=== PATIENT | female | born 1970 | race American Indian/Alaskan Native ===

== ENCOUNTER 2016-11-09 11:01 | Inpatient (IN) | payer MEDICAID, OTHER ==
[2016-11-09 11:01] VITALS: BMI 32.6
[2016-11-09 11:53] LABS: BASO # 0.1 K/uL (0.0-0.2); BASO % 0.9 % (0.0-2.0); EOS # 0.2 K/uL (0.0-0.7); EOS % 2.6 % (0.0-4.0); HEMATOCRIT 40.5 % (34.0-47.0); LYMPH # 3.4 K/uL (1.0-4.3); LYMPH % 45.1 % (20.0-40.0); MEAN CELL VOLUME 88.7 fL (81.0-99.0); MEAN CORPUSCULAR HGB CONC 32.7 g/dL (33.0-37.0); MEAN PLATELET VOLUME 10.9 fL (7.2-11.7); MONO # 0.5 K/uL (0.0-0.8); NRBC % 0.1 % (0.0-2.0); RED CELL DISTRIBUTION WIDTH 14.2 % (11.5-14.5); WHITE BLOOD COUNT 7.6 K/uL (4.8-10.8)
[2016-11-09 11:57] LABS: CHLORIDE 102 mmol/L (98-107); POTASSIUM 3.7 mmol/L (3.6-5.2); SODIUM 141 mmol/L (132-148)
[2016-11-09 11:59] LABS: BILIRUBIN,TOTAL 0.4 mg/dL (0.2-1.3); CARBON DIOXIDE 26 mmol/L (22-30); GFR AFRICAN-AMERICAN > 60
[2016-11-09 12:00] LABS: ALB/GLOB RATIO 1.2 (1.0-2.1); ALCOHOL SERUM < 10 mg/dl (0-10); ALKALINE PHOSPHATASE 56 U/L (38-126); ALT/SGPT 18 U/L (9-52); AST/SGOT 19 U/L (14-36); BLOOD UREA NITROGEN 13 mg/dL (7-17); GLUCOSE,RANDOM 78 mg/dL (65-105)
[2016-11-09 12:00] LABS: RBC URINE 3 /hpf (0-3); URINE BACTERIA RARE (<OCC); URINE BILIRUBIN NEGATIVE (NEGATIVE); URINE BLOOD NEGATIVE (NEGATIVE); URINE COLOR Amber (YELLOW); URINE GLUCOSE (UA) NORMAL (Normal); URINE KETONE NEGATIVE (NEGATIVE); URINE LEUKOCYTE ESTERASE NEG Leu/uL (Negative); URINE PROTEIN 1+ mg/dL (NEGATIVE); WBC URINE 2 /hpf (0-5)
--- NOTE | 2016-11-09 12:37 | C.PDOC ---
History Of Present Illness 46-year-old female, presents to the emergency department by BLS requesting detox from Heroin. Patient admits to abusing Heroin for the past two years. Last use was this morning. Pt denies suicidal ideation or attempts, hx of depression. Denies head injury, LOC, syncope, neck pain, nausea/vomiting, chest pain, shortness of breath, palpitation, diaphoresis, abd. pain, back pain, UTI sx, or any other associated symptoms. No other complaints at this time. At present time, pt is AAO#3, appears comfortable, appropriate, not in any apparent distress. Time Seen by Provider: 11/09/16 11:20 Chief Complaint (Nursing): Substance Abuse History Per: Patient History/Exam Limitations: no limitations Onset/Duration Of Symptoms: Days Current Symptoms Are (Timing): Still Present Past Medical History Reviewed: Historical Data, Nursing Documentation, Vital Signs Vital Signs: Last Vital Signs Temp 97.8 F 11/09/16 11:30 Pulse 80 11/09/16 11:30 Resp 16 11/09/16 11:30 BP 151/87 H 11/09/16 11:30 Pulse Ox 98 11/09/16 12:51 - Medical History PMH: Asthma, Back Problems, Depression, Diverticulitis Denies: Diabetes, Hepatitis, HIV, HTN, Seizures, Sexually Transmitted Disease Family History: States: Unknown Family Hx - Social History Hx Tobacco Use: Yes Hx Alcohol Use: No Hx Substance Use: Yes (heroin and cocaine) - Immunization History Hx Tetanus Toxoid Vaccination: No Hx Influenza Vaccination: No Hx Pneumococcal Vaccination: No Review Of Systems Except As Marked, All Systems Reviewed And Found Negative. Constitutional: Negative for: Fever Cardiovascular: Negative for: Chest Pain Respiratory: Negative for: Shortness of Breath Gastrointestinal: Negative for: Vomiting Skin: Negative for: Rash Psych: Negative for: Suicidal ideation Physical Exam - Physical Exam Appears: Well, Non-toxic, No Acute Distress Skin: Warm, Dry, No Rash Head: Atraumatic, Normacephalic Eye(s): bilateral: Normal Inspection Ear(s): Bilateral: Normal Nose: Normal, No Discharge Oral Mucosa: Moist, No Drooling, No Trismus Tongue: Normal Appearing Lips: Normal Appearing Throat: Normal Neck: Normal, Normal ROM, Supple Cardiovascular: Rhythm Regular Respiratory: Normal Breath Sounds, No Accessory Muscle Use, No Stridor, No Wheezing Gastrointestinal/Abdominal: Normal Exam, Soft, No Tenderness, No Distention, No Guarding, No Rebound Back: Normal Inspection, No CVA Tenderness Extremity: Normal ROM, No Pedal Edema, No Deformity Neurological/Psych: Oriented x3, Normal Speech, Normal Motor, Normal Sensation, Normal Reflexes ED Course And Treatment - Laboratory Results Result Diagrams: 11/09/16 11:40 11/09/16 11:40 Lab Interpretation: Normal O2 Sat by Pulse Oximetry: 98 Pulse Ox Interpretation: Normal Progress Note: On re-eavluation at 11:40, pt is afebrile, hemodynamicaly stable. Non-toxic. AAO#3, not in any apparent distress. neurologicaly intact. Blood wrok review and appears normal. PATIENT IS MEDICALLY CLEARED FOR PES EVALUATION AND FURTHER TREATMENT,TRANSFER NEED. After PES evaluated pt case was discussed with [id number] and admission to detox recommend at this time. Disposition - Disposition Disposition: HOSPITALIZED Disposition Time: 12:51 Condition: STABLE - Clinical Impression Clinical Impression: Heroin dependence - Scribe Statement The provider has reviewed the documentation as recorded by the Kaity Trivedi All medical record entries made by the Scribe were at my direction and personally dictated by me. I have reviewed the chart and agree that the record accurately reflects my personal performance of the history, physical exam, medical decision making, and the department course for this patient. I have also personally directed, reviewed, and agree with the discharge instructions and disposition.
[2016-11-09] MEDS ORDERED: guaiFENesin DM 200 mg-20 mg/10 ml UD PO PRN (15:03)
[2016-11-09] MEDS ORDERED: Aluminum Hydroxide/Magnesium Hydroxide Susp (30 mL) PO PRN (15:03)
--- NOTE | 2016-11-10 08:51 | PCM.PSYCH ---
Initial Psychiatric Evaluation - Initial Psychiatric Evaluation Type of Admission: Voluntary Legal Status: Capacity Chief Complaint (in patient's own words): "Heroin" History of Present Illness and Precipitating Events: The patient is seen, chart reviewed and case discussed. This is a 46-year-old -[place] female, single with 2 adult children, lives alone, on disability due to asthma. The patient admits to using up to 10 bags of intranasal heroin for about a year but she first started when she was 12 years old. She had been using on and off since then, and last year she went to [facility] methadone program but quit after 4 days, because, reportedly, they did not respect her confidentiality. The patient has been to detox 3 times and rehabilitation 6 times including [facility]. She has not used Suboxone as a maintenance treatment or Vivitrol. The patient admits to using marijuana and cocaine occasionally, sometimes more. She smokes cocaine. Weeks ago she also used Xanax but currently she is clean. She smokes 5-6 cigarettes a day. Past psych history: Denies Family psych history: Cousins had heroin use. Medical history: Asthma, obesity, diverticulitis Current Medications: Active Medications Generic Name Dose Route Start Last Admin Trade Name Freq PRN Reason Stop Dose Admin Acetaminophen 650 mg 11/09/16 15:03 Tylenol 325mg Tab PO Q4H PRN Fever greater than 101 F Al Hydrox/Mg Hydrox/Simethicone 30 ml 11/09/16 15:03 Maalox 30 Ml PO TID PRN Indigestion / Heartburn Clonidine HCl 0.1 mg 11/09/16 15:03 11/09/16 19:15 Catapres PO 0.1 mg Q8 PRN Administration COWS Score More or Equal to 5 Gabapentin 100 mg 11/09/16 18:00 11/09/16 18:04 Neurontin PO 100 mg TID EBER Administration Guaifenesin/Dextromethorphan 10 ml 11/09/16 15:03 Robitussin Dm PO Q4H PRN Cough and congestion Hydroxyzine HCl 25 mg 11/09/16 15:52 11/09/16 18:04 Atarax PO 25 mg Q6 PRN Administration Anxiety Loperamide HCl 2 mg 11/09/16 15:03 Imodium PO Q8 PRN Diarrhea Methadone HCl 15 mg 11/10/16 10:00 Methadone PO 11/13/16 09:59 DAILY EBER Taper Mirtazapine 15 mg 11/09/16 22:00 11/09/16 21:00 Remeron PO 15 mg HS EBER Administration Nicotine 1 patch 11/09/16 15:15 11/09/16 16:36 Nicoderm Cq TD Not Given DAILY EBER Ondansetron HCl 4 mg 11/09/16 15:03 Zofran Tab PO Q8 PRN Nausea/Vomiting Pseudoephedrine HCl 60 mg 11/09/16 15:03 Sudafed Tab PO QID PRN Nasal/Sinus Congestion Trazodone HCl 50 mg 11/09/16 22:00 11/09/16 21:01 Desyrel PO Not Given HS EBER Past Psychiatric History - Past Psychiatric History Previous Treatment History: None Pertinent Medical Hx (Current Medical&Sleep Prob, Allergies): Allergies Allergy/AdvReac Type Severity Reaction Status Date / Time Penicillins Allergy Intermediate RASH Verified 11/05/16 09:22 shellfish derived Allergy SWELLING Verified 11/05/16 09:22 Montelukast Sodium [Singulair] 5 mg PO PRN PRN 04/03/13 Albuterol HFA [Ventolin HFA 90 mcg/actuation (8 g)] 0.09 mg IH PRN PRN 11/05/16 Dicyclomine [Bentyl] 10 mg PO QID #30 cap 11/05/16 Review of Systems - Neurological Neurological: UNREMARKABLE - Psychiatric Psychiatric: Abnormal Sleep Pattern, Anxiety, Difficulty Concentrating, Irritability. absent: Hallucinations, Homicidal Ideation, Paranoia, Suicidal Ideation Mental Status Examination - Personal Presentation Personal Presentation: Looks stated age - Affect Affect: Constricted - Motor Activity Motor Activity: Calm - Reliability in Providing Information Reliability in Providing Information: Good - Speech Speech: Organized - Mood Mood: Anxious - Formal Thought Process Formal Thought Process: No Impairment - Cognitive Functions Orientation: Person, Place, Situation, Time Sensorium: Alert Attention/Concentration: Attentive Abstract Thinking: [place] Estimate of Intelligence: Below average Judgement: Intact, as evidence by: Insight regarding need for hospitalization Memory: Recent intact, as evidence by: Ability to recall events of the day, Remote intact, as evidenced by: Abilit to recall sig. life events - Risk Risk: Withdrawal, Diminished functioning - Strength & Assets Inventory Strength & Assets Inventory: Cooperative - Limitations Limitations: Living alone DSM 5 DX - DSM 5 DSM 5 Diagnosis: Opioid withdrawal Opioid use disorder, severe Cocaine use disorder, moderate Cannabis use disorder, moderate - Recommended/Plan of Treatment Treatment Recommendations and Plan of Treatment: Opioids: -Methadone detox -support and psychoeducation -As needed medications -Refer to IOP or rehabilitation but consider at MAT -ND for abstinence Cocaine and cannabis: -ND for abstinence Nicotine: -ND for abstinence -Patch 32 minutes Projected ELOS: 4 days Prognosis: Good with treatment Discharge Plan and Discharge Criteria: No withdrawal symptoms Refer to IOP and MAT, consider rehabilitation - Smoking Cessation Smoking Cessation Initiated: Yes
--- NOTE | 2016-11-11 11:10 | PCM.PYCHPN ---
Psychiatric Progress Note - Psychiatric Progress Note Patient seen today, length of contact: 16 min Patient Chief Complaint: "A little better" Problems Identified/Issues Discussed: The pt is seen, chart reviewed, case discussed with staff. The pt is compliant with medications and reports no side-effects. Symptoms of withdrawal are improving but needs more time to stabilize. After care discussed, support and psychoeducation given. Medication Change: Yes (detox changes daily) Medical Record Reviewed: Yes Mental Status Examination - Cognitive Function Orientation: Person, Place, Situation, Time Memory: Impaired Attention: WNL Concentration: WNL Association: WNL Fund of Knowledge: WNL - Mood Mood: Anxious - Affect Affect: Constricted - Speech Speech: Appropriate - Formal Thought Process Formal Thought Process: No Impairment - Suicidal Ideation Suicidal Ideation: No - Homicidal Ideation Homicidal Ideation: No Goal/Treatment Plan - Goal/Treatment Plan Need for Continued Stay: Discharge may exacerbated symptoms, Severe functional impairment Progress Toward Problem(s) and Goals/Treatment Plan: Opioids: -Methadone detox -support and psychoeducation -As needed medications -Refer to IOP or rehabilitation but consider at MAT -WV for abstinence Cocaine and cannabis: -WV for abstinence Nicotine: -WV for abstinence -Patch Estimated Date of D/C: 11/13/16 - Smoking Cessation Smoking Cessation Initiated: Yes
--- NOTE | 2016-11-12 11:54 | PCM.PYCHPN ---
Psychiatric Progress Note - Psychiatric Progress Note Patient seen today, length of contact: 16 min Patient Chief Complaint: i am still having withdrawal symptoms Problems Identified/Issues Discussed: Patient seen and evaluated, chart reviewed and discussed with the nurse. The patient reports improvement in her mood but still reports withdrawal symptoms including anxiety, abdominal cramps, warm pains and sweating. As per the nurse patient is improving but still reports of anxiety. Patient denies any suicidal ideation or homicidal ideation. Patient is taking medications and denies any side effects. Supportive therapy and psychoeducation were given. Medication Change: Yes (detox changes daily) Medical Record Reviewed: Yes Mental Status Examination - Cognitive Function Orientation: Person, Place, Situation, Time Memory: Impaired Attention: WNL Concentration: WNL Association: WNL Fund of Knowledge: WNL - Mood Mood: Anxious - Affect Affect: Constricted - Speech Speech: Appropriate - Formal Thought Process Formal Thought Process: No Impairment - Suicidal Ideation Suicidal Ideation: No - Homicidal Ideation Homicidal Ideation: No Goal/Treatment Plan - Goal/Treatment Plan Need for Continued Stay: Discharge may exacerbated symptoms, Severe functional impairment Progress Toward Problem(s) and Goals/Treatment Plan: Opioid withdrawal Opioid use disorder, severe Cocaine use disorder, moderate Cannabis use disorder, moderate Opioids: -Methadone detox -support and psychoeducation -As needed medications -Refer to IOP or rehabilitation but consider at MAT -NM for abstinence Cocaine and cannabis: -NM for abstinence Nicotine: -NM for abstinence -Patch Estimated Date of D/C: 11/13/16 - Smoking Cessation Smoking Cessation Initiated: Yes
[2016-11-12 16:21] VITALS: RESP 18
[2016-11-13 09:37] VITALS: BP 140/86; PULSE 74; TEMP 98.7; O2SAT 100
--- NOTE | 2016-11-13 11:19 | PCM.PYCHDC ---
Mental Status Examination - Mental Status Examination Orientation: Person, Place, Situation, Time Memory: Intact Mood: Neutral Affect: Other (Appropriate) Speech: Appropriate Attention: WNL Concentration: WNL Association: WNL Fund of Knowledge: WNL Formal Thought Process: No Impairment Description of patient's judgement and insight: Good Psychotic Thoughts and Behaviors: None Suicidal Ideation: No Current Homicidal Ideation?: No Discharge Summary - Discharge Note Reason for Hospitalization: Opiate use and withdrawal Psychiatric History (includes Medical, Family, Personal Hx): Opiate use, cocaine use, cannabis use Laboratory Data: Reviewed Consultations:: List each consultation separately and include: 1. Reason for request. 2. Findings. 3. Follow-up Summary of Hospital Course include:: 1. Description of specific treatment plan utilized for patients during their course of treatmen. 2. Summarize the time- course for resolution of acute symptoms and/or regressed behaviors. 3. Describe issues identified and worked on during hospitalization. 4. Describe medication utilized. 5. Describe medical problems identified and treated. 6. Reassessment of suicide risk Summary of Hospital Course: The patient is seen, chart reviewed and case discussed. This is a 46-year-old -[place] female, single with 2 adult children, lives alone, on disability due to asthma. The patient admits to using up to 10 bags of intranasal heroin for about a year but she first started when she was 12 years old. She had been using on and off since then, and last year she went to [facility] methadone program but quit after 4 days, because, reportedly, they did not respect her confidentiality. The patient has been to detox 3 times and rehabilitation 6 times including [facility]. She has not used Suboxone as a maintenance treatment or Vivitrol. The patient admits to using marijuana and cocaine occasionally, sometimes more. She smokes cocaine. Weeks ago she also used Xanax but currently she is clean. She smokes 5-6 cigarettes a day. During her stay in the hospital, patient was treated with methadone and other supportive medications. Patient was also started on Remeron 15 mg at bedtime. With this treatment patient started feeling better gradually. Today patient had no withdrawal symptoms. Patient was ready for discharge. Patient will go to [facility] rehabilitation after discharge. At the time of evaluation and discharge, patient was awake alert oriented 3, had no delusions, no auditory or visual hallucinations, no suicidal ideations or homicidal ideations. Patient was discharged in a stable condition. - Final Diagnosis (DSM 5) Condition upon Discharge: STABLE Disposition: HOME/ ROUTINE Follow-up Treatment Plan: [facility] - Smoking Cessation Smoking Cessation Medication prescribed: Yes - Antipsychotic Medications Pt discharged on 2 or more routine antipsychotic medications: No
== END 2016-11-13 09:30 | disposition home or self-care (01) | DRG 745 ==
LOC: C.ER 11:01 → C.7D 14:19
PROVIDERS: ADMIT Psychiatry & Neurology Psychiatry; ATTEND Psychiatry & Neurology Psychiatry
PROC: HZ2ZZZZ Detoxification Services for Substance Abuse Treatment (ICD-10-PCS; principal; 2016-11-09)
DX: F11.23 Opioid dependence with withdrawal (principal); F14.10 Cocaine abuse, uncomplicated; F12.10 Cannabis abuse, uncomplicated; F17.210 Nicotine dependence, cigarettes, uncomplicated; F32.9 Major depressive disorder, single episode, unspecified; J45.909 Unspecified asthma, uncomplicated